=== PATIENT | female | born 1980 | race Asian ===

== ENCOUNTER 2020-05-30 13:36 | Outpatient (REF) | payer OTHER, SELFPAY | END 2020-05-30 13:37 | disposition home or self-care (01) | LOC: HO.HMGCLDS 13:36 | PROVIDERS: PCP Internal Medicine; Visit Provider Nurse Practitioner Family | DX: Z02.1 Encounter for pre-employment examination (principal) | CPT/HCPCS: 86481 ==

== ENCOUNTER 2020-06-28 11:52 | Outpatient (REF) | payer OTHER, SELFPAY ==
--- NOTE | 2020-06-28 12:01 | XR_ITS ---
EXAMINATION: XR CHEST CLINICAL INFORMATION: Preemployment. COMPARISON: Chest x-ray 07/13/2018. TECHNIQUE: Frontal view of the chest was obtained. FINDINGS: No significant abnormality is noted involving the heart, lungs, mediastinum, bony thorax or soft tissues. XR/XR chest 1V IMPRESSION: Unremarkable chest examination.
== END 2020-06-28 11:53 | disposition home or self-care (01) ==
LOC: HO.HMGCX 11:52
PROVIDERS: PCP Internal Medicine; Visit Provider Nurse Practitioner Family
DX: Z02.1 Encounter for pre-employment examination (principal); R76.11 Nonspecific reaction to tuberculin skin test without active tuberculosis
CPT/HCPCS: 71045

== ENCOUNTER 2021-08-20 13:41 | Outpatient (REF) | payer OTHER, SELFPAY ==
--- NOTE | ~2021-08-20 | XR_ITS ---
EXAMINATION: XR THORACIC SPINE CLINICAL INFORMATION: Dorsalis. Unspecified. COMPARISON: Chest radiograph 06/28/2020. TECHNIQUE: AP, lateral, swimmer's radiographs of the thoracic spine FINDINGS: Thoracic vertebral body height, spacing and alignment are normal in appearance. No paraspinous soft tissue masses identified. The visualized ribs and lungs are normal in appearance. No facet or endplate arthropathic changes are visualized. The visualized cervical spine on the swimmer's view demonstrates no gross spondylosis. XR/XR thoracic spine 3V IMPRESSION: Normal radiographs of the thoracic spine.
== END 2021-08-20 13:42 | disposition home or self-care (01) ==
LOC: HO.HMGCLDS 13:41
PROVIDERS: PCP Internal Medicine; Visit Provider Internal Medicine
DX: M54.9 Dorsalgia, unspecified (principal); R51.9 Headache, unspecified
CPT/HCPCS: 72072

== ENCOUNTER 2021-08-21 11:05 | Outpatient (REF) | payer OTHER, SELFPAY ==
[2021-08-21 14:43] LABS: MANUAL DIFF FLAG NO
[2021-08-21 14:47] LABS: Basophils Percent Auto 0.7 % (0-2); Eosinophils Absolute Auto 0.1 X10*3/uL (0.0-0.4); Eosinophils Percent Auto 1.9 % (0-4); Hemoglobin 11.1 g/dl (12.0-16.0); Imm Gran Abs Auto 0.01 X10*3/uL (0.00-0.03); Imm Gran Pct Auto 0.2 % (0.0-0.4); Lymphocytes Absolute Auto 2.1 X10*3/uL (1.2-4.9); Lymphocytes Percent Auto 36.1 % (20-40); Mean Corpuscular HGB Conc 32.6 g/dl (31.0-35.0); Mean Corpuscular Hemoglobin 29.8 pg (27.0-33.0); Mean Corpuscular Volume 91.2 fL (80.0-98.0); Mean Platelet Volume 11.2 fL (9.4-12.3); Monocytes Absolute Auto 0.4 X10*3/uL (0.1-1.2); Monocytes Percent Auto 6.6 % (2-11); Neutrophils Absolute Auto 3.2 x10*3/uL (2.0-8.3); Neutrophils Percent Auto 54.5 % (45-73); Platelet Count 253 X10*3/uL (160-400); Red Blood Count 3.73 X10*6/uL (4.20-5.50); Red Cell Distribution Width 12.4 % (11.0-16.0); White Blood Count 5.8 X10*3/uL (4.8-10.8)
[2021-08-21 15:20] LABS: Anion Gap 12 (12-20); Blood Urea Nitrogen 12 mg/dL (9-16); Calcium 9.1 mg/dL (8.4-10.2); Carbon Dioxide 25 mmol/L (22-29); Chloride 108 mmol/L (96-108); Estimated Glomerular Filt Rate > 60; Glucose Fasting 86 mg/dL (60-99); Potassium 4.3 mmol/L (3.3-5.1); Sodium 141 mmol/L (135-145)
[2021-08-21 15:25] LABS: TSH reflex Free T4 1.77 uIU/mL (0.32-4.0); Vitamin D 25-OH Total 23.9 ng/mL (>30)
== END 2021-08-21 11:06 | disposition home or self-care (01) ==
LOC: HO.HMGCLDS 11:05
PROVIDERS: PCP Internal Medicine; Visit Provider Internal Medicine
DX: M54.9 Dorsalgia, unspecified (principal); R51.9 Headache, unspecified
CPT/HCPCS: 36415; 80048; 82306; 84443; 85025

== ENCOUNTER 2021-09-13 11:01 | Outpatient (REF) | payer OTHER, SELFPAY ==
--- NOTE | ~2021-09-13 | CT_ITS ---
EXAMINATION: CT HEAD WITHOUT CONTRAST CLINICAL INFORMATION: R51.9 - Headache, unspecified COMPARISON: None TECHNIQUE: Contiguous axial imaging was performed from the skull base to vertex without intravenous administration of contrast. Additional 2-D coronal and sagittal reformatted images are generated on the CT workstation and uploaded to PACS. This CT examination was performed using dose optimization techniques as appropriate, variously including the following: *Automated exposure control *Adjustment of mA and/or kV according to patient size (this includes techniques or standardized protocols for targeted exams where dose is matched to indication/reason for exam; i.e. extremities or head) *Use of iterative reconstruction technique DLP: 776 mGy-cm FINDINGS: There is no intracranial hemorrhage, hematoma, or extra-axial fluid collection. The ventricles are normal in size. There is no hydrocephalus, edema, or mass effect. The valdovinos-white matter differentiation appears well preserved . There is no visible acute territorial infarct or mass lesion. The calvarium appears intact. There is no pneumocephalus or orbital emphysema. The visualized sinuses and middle ears and mastoid air cells show no significant mucosal thickening. There are no air-fluid levels. CT/CT head/brain wo con IMPRESSION: Normal noncontrast CT head.
== END 2021-09-13 11:02 | disposition home or self-care (01) ==
LOC: HO.CT 11:01
PROVIDERS: PCP Internal Medicine; Visit Provider Internal Medicine
DX: R51.9 Headache, unspecified (principal)
CPT/HCPCS: 70450

== ENCOUNTER 2022-04-24 15:05 | Outpatient (REF) | payer OTHER, SELFPAY ==
--- NOTE | ~2022-04-24 | XR_ITS ---
EXAMINATION: XR CHEST CLINICAL INFORMATION: Drug therapy COMPARISON: June 28, 2020 TECHNIQUE: 2 views of the chest were obtained. FINDINGS: No significant abnormality is noted involving the heart, lungs, mediastinum, bony thorax or soft tissues. XR/XR chest 2V IMPRESSION: No acute disease.
[2022-04-30 00:37] LABS: HPV mRNA E6/E7 rflx Not Detected (Not Detected)
== END 2022-04-24 15:06 | disposition home or self-care (01) ==
LOC: HO.HMGCX 15:05
PROVIDERS: PCP Internal Medicine; Visit Provider Internal Medicine
DX: Z00.01 Encounter for general adult medical examination with abnormal findings (principal); E55.9 Vitamin D deficiency, unspecified; E78.5 Hyperlipidemia, unspecified; D64.9 Anemia, unspecified; Z92.29 Personal history of other drug therapy; Z12.4 Encounter for screening for malignant neoplasm of cervix
CPT/HCPCS: 71046; 87624; 88142

== ENCOUNTER 2022-05-06 13:55 | Outpatient (REF) | payer OTHER, SELFPAY ==
--- NOTE | ~2022-05-06 | MM_ITS ---
EXAMINATION: MM SCREENING DIGITAL BREAST TOMOSYNTHESIS, BILATERAL CLINICAL INFORMATION: Screening. Asymptomatic. The lifetime risk of breast cancer based on the Tyrer-Cuzick Model is 9%. COMPARISON: Mammography: None TECHNIQUE: Digital breast tomosynthesis is performed in both the craniocaudal and mediolateral oblique views along with computer-aided detection (CAD). Synthesized 2D images are generated from the tomosynthesis. FINDINGS: The breasts are heterogeneously dense, which may obscure small masses (ACR BI-RADS breast composition Category c). There are no significant masses, abnormal calcifications, or other abnormalities. MM/MM tomosynthesis screening BI IMPRESSION: No mammographic evidence of malignancy. ASSESSMENT: BI-RADS 1: Negative RECOMMENDATION: Routine annual mammography screening. This patient's information was entered into a reminder system with a target due date for their next mammogram.
== END 2022-05-06 13:56 | disposition home or self-care (01) ==
LOC: HO.MAMMO 13:55
PROVIDERS: PCP Internal Medicine; Visit Provider Internal Medicine
DX: Z12.31 Encounter for screening mammogram for malignant neoplasm of breast (principal)
CPT/HCPCS: 77063; 77067

== ENCOUNTER 2022-05-09 10:26 | Outpatient (REF) | payer OTHER, SELFPAY ==
[2022-05-09 11:16] LABS: MANUAL DIFF FLAG NO
[2022-05-09 11:27] LABS: Basophils Percent Auto 0.8 % (0-2); Eosinophils Absolute Auto 0.1 X10*3/uL (0.0-0.4); Eosinophils Percent Auto 2.6 % (0-4); Hematocrit 34.1 % (37.0-47.0); Hemoglobin 11.7 g/dl (12.0-16.0); Imm Gran Abs Auto 0.01 X10*3/uL (0.00-0.03); Imm Gran Pct Auto 0.2 % (0.0-0.4); Lymphocytes Absolute Auto 1.8 X10*3/uL (1.2-4.9); Lymphocytes Percent Auto 35.2 % (20-40); Mean Corpuscular HGB Conc 34.3 g/dl (31.0-35.0); Mean Corpuscular Hemoglobin 31.7 pg (27.0-33.0); Mean Corpuscular Volume 92.4 fL (80.0-98.0); Mean Platelet Volume 10.7 fL (9.4-12.3); Monocytes Absolute Auto 0.3 X10*3/uL (0.1-1.2); Monocytes Percent Auto 5.9 % (2-11); Neutrophils Absolute Auto 2.8 x10*3/uL (2.0-8.3); Neutrophils Percent Auto 55.3 % (45-73); Platelet Count 259 X10*3/uL (160-400); Red Blood Count 3.69 X10*6/uL (4.20-5.50); Red Cell Distribution Width 12.4 % (11.0-16.0); White Blood Count 5.1 X10*3/uL (4.8-10.8)
[2022-05-09 12:15] LABS: Alanine Aminotransferase 17 U/L (0-31); Anion Gap 15 (12-20); Aspartate Amino Transferase 17 U/L (5-31); Blood Urea Nitrogen 11 mg/dL (9-16); Calcium 9.1 mg/dL (8.4-10.2); Carbon Dioxide 23 mmol/L (22-29); Chloride 108 mmol/L (96-108); Cholesterol 226 mg/dL; Estimated Glomerular Filt Rate > 60; Glucose Fasting 94 mg/dL (60-99); HDL Cholesterol 57 mg/dL; Iron 58 mcg/dL (30-160); LDL Cholesterol Calculated 154 mg/dl; Percent Iron Saturation 19 % (15-50); Potassium 4.1 mmol/L (3.3-5.1); Sodium 142 mmol/L (135-145); Total Iron Binding Capacity 305 mcg/dL (228-428); Triglycerides 75 mg/dL; Unsaturated Iron Binding 247 ug/dL
== END 2022-05-09 10:27 | disposition home or self-care (01) ==
LOC: HO.HMGCLDS 10:26
PROVIDERS: PCP Internal Medicine; Visit Provider Internal Medicine
DX: Z00.01 Encounter for general adult medical examination with abnormal findings (principal); D64.9 Anemia, unspecified; E78.5 Hyperlipidemia, unspecified; E55.9 Vitamin D deficiency, unspecified
CPT/HCPCS: 36415; 80048; 80061; 82306; 83540; 84450; 84460; 85025

== ENCOUNTER 2023-01-23 13:17 | Outpatient (REF) | payer OTHER, SELFPAY ==
[2023-01-23 14:48] LABS: Appearance Urine Turbid; Color Urine Dark Yellow; Glucose Urine UA Negative (Negative); Leukocyte Esterase Urine Trace (Negative); Nitrite Urine Negative (Negative); PH 5.5 (5.0-9.0); Specific Gravity - Urine 1.025 (1.005-1.025); UMIC TRIGGER UACC YES; Urine Blood Negative (Negative); Urine Ketones Trace mg/dL (Negative); Urine Protein Negative (Neg-Trace)
[2023-01-23 14:56] LABS: Bacteria Urine 1+ (None Seen); Calcium Oxalate Crystals Urine Present; Hyaline Casts Urine 0-2 /LPF (0-2); Other Crystals Urine Present; WBC Urine 0-5 /HPF (0-5)
[2023-01-23 15:33] LABS: Influenza A PCR NEGATIVE (Negative); Influenza B PCR NEGATIVE (Negative); Resp Syncy Virus RNA Qual PCR NEGATIVE (Negative); SARS COV2 PCR INHOUSE NEGATIVE (Negative)
[2023-01-23 17:19] LABS: MANUAL DIFF FLAG NO
[2023-01-23 17:34] LABS: Basophils Percent Auto 0.6 % (0-2); Eosinophils Absolute Auto 0.1 X10*3/uL (0.0-0.4); Eosinophils Percent Auto 1.2 % (0-4); Hemoglobin 11.7 g/dl (12.0-16.0); Imm Gran Abs Auto 0.02 X10*3/uL (0.00-0.03); Imm Gran Pct Auto 0.3 % (0.0-0.4); Lymphocytes Absolute Auto 1.7 X10*3/uL (1.2-4.9); Lymphocytes Percent Auto 23.9 % (20-40); Mean Corpuscular HGB Conc 33.4 g/dl (31.0-35.0); Mean Corpuscular Volume 92.8 fL (80.0-98.0); Mean Platelet Volume 11.4 fL (9.4-12.3); Monocytes Absolute Auto 0.5 X10*3/uL (0.1-1.2); Monocytes Percent Auto 6.9 % (2-11); Neutrophils Absolute Auto 4.9 x10*3/uL (2.0-8.3); Neutrophils Percent Auto 67.1 % (45-73); Platelet Count 233 X10*3/uL (160-400); Red Blood Count 3.77 X10*6/uL (4.20-5.50); Red Cell Distribution Width 12.2 % (11.0-16.0); White Blood Count 7.3 X10*3/uL (4.8-10.8)
[2023-01-23 17:37] LABS: Anion Gap 9 (12-20); Blood Urea Nitrogen 11 mg/dL (9-16); Calcium 9.1 mg/dL (8.4-10.2); Carbon Dioxide 27 mmol/L (22-29); Chloride 108 mmol/L (96-108); Estimated Glomerular Filt Rate > 60; Glucose Random 120 mg/dL (60-115); Potassium 3.7 mmol/L (3.3-5.1); Sodium 140 mmol/L (135-145)
== END 2023-01-23 13:18 | disposition home or self-care (01) ==
LOC: HO.HMGCLDS 13:17
PROVIDERS: PCP Internal Medicine; Visit Provider Nurse Practitioner Family
DX: Z20.822 Contact with and (suspected) exposure to COVID-19 (principal); D64.9 Anemia, unspecified; R09.89 Other specified symptoms and signs involving the circulatory and respiratory systems
CPT/HCPCS: 0241U; 36415; 80048; 81001; 85025

== ENCOUNTER 2023-01-30 10:34 | Outpatient (AMB) | payer OTHER, SELFPAY ==
--- NOTE | 2023-01-30 10:40 | A.OFFPC_ITS ---
Vital Signs 01/30/23 10:41 Height 5 ft 2 in Weight 174 lb BMI 31.8 BP 134/92 H Blood Pressure Location Lt brachial Position Sitting Pulse 96 Pulse Source Pulse Oximeter Pulse Oximetry (%) 98 Oxygen Delivery Method Room Air Intake Visit Reasons: f/u WI elevated glucose/ light headedness f/u Intake Note: Pt is here today to f/u from [place] for elevated random glucose and light headedness Allergies No Known Allergies Allergy (Verified 01/30/23 10:50) Medication List - Last Reconciled 01/30/23 by Linnette Mckeon MD No Known Home Meds Tobacco use date assessed: 01/30/23 HPI f/u WI elevated glucose/ light headedness f/u HPI Details 42-year-ol lady here today for follow-up after recently being seen at the walk-in clinic where she was told she had high fasting glucose levels. Patient also has been complaining of intermittent episodes of lightheadedness, comes and goes and lasts only for several seconds. Labs done at the walk-in showed presence of mild anemia, and slightly elevated random blood sugar at 1 20 mg/dL. Urinalysis did not show any infection. She tested negative for COVID, influenza. She has been feeling well at present time, with no recurrence of lightheadedness. Laboratory Tests 01/23/23 01/23/23 13:24 13:24 WBC 7.3 Hgb 11.7 L Hct 35.0 L MCV 92.8 MCH 31.0 RDW 12.2 Plt Count 233 Chloride 108 Carbon Dioxide 27 Anion Gap 9 L BUN 11 Creatinine 0.69 Estimated GFR > 60 [facility] Gl[facility] Medical History Anemia Dyslipidemia History of Bacillus Calmette-Flaco vaccination Surgical History No pertinent past surgical history Family History Father Essential hypertension Social History Household Members: Family Housing: House Patient Tobacco Use Status: Never used Tobacco e-Cigarette/Vaping Use: Never Used Use of substances other than those prescribed or required for medical reasons: No Have you been hit, kicked, punched, or otherwise hurt by someone within the past year? If so, by whom?: No Do you feel safe in your current relationship?: No Current Relationship Do you have thoughts of harming others: None Do you have a plan to hurt others: No Plan Do you have the means to hurt others: No Recently lost weight without trying: No service: No Current occupational status: employed Cognitive needs: No Hearing needs: No Vision needs: Yes Questionnaire PHQ-9 Over the last 2 weeks, how often have you been bothered by any of the following problems? 1. Little interest or pleasure in doing things: not at all 2. Feeling down, depressed, or hopeless: not at all 3. Trouble falling or staying asleep, or sleeping too much: not at all 4. Feeling tired or having little energy: not at all 5. Poor appetite or overeating: not at all 6. Feeling bad about yourself - or that you are a failure or have let yourself or your family down: not at all 7. Trouble concentrating on things, such as reading the newspaper or watching television: not at all 8. Moving or speaking so slowly that other people could have noticed. Or the opposite - being so fidgety or restless that you have been moving around a lot more than usual: not at all 9. Thoughts that you would be better off or of hurting yourself in some way: not at all Total score: 0 Depression Screening Interpretation: Negative 97417 - PHQ-9 Billing: Yes Source: Developed by Drs. Jorje Kaba, Carmen Bhat, Ata Irving and colleagues, with an educational faraz from [employer]. Thrive Questionnaire Date Thrive assessed: 01/30/23 I am a: Patient What is your living situation today?: I have a steady place to live Within the past 12 months, did the food you bought not last and you didn't have the money to get more?: Never true Within the past 12 months, did you worry whether your food would run out before you got money to buy more?: Never true Do you have trouble paying for medicines?: No Do you have trouble getting transportation to medical appointments?: No Do you have trouble paying your heating and electricity bill?: No Do you have trouble taking care of your child, family member or friend?: No Do you have trouble with day-to-day activities such as bathing, preparing meals, shopping, managing finances, etc.?: No Are you currently unemployed and looking for a job?: No Are you interested in more education?: No AUDIT C Alcohol Use Questionnaire (AUDIT-C) 1. How often do you have a drink containing alcohol?: Never Total Score: 0 JOSHUA-7 AMB Questionnaire JOSHUA-7 Date JOSHUA - 7 assessed: 01/30/23 Feeling nervous, anxious, or on edge: 1 = Several days Not being able to stop or control worryin = Several days Worrying too much about different things: 1 = Several days Trouble relaxin = Several days Being so restless that it is hard to sit still: 0 = Not at all Becoming easily annoyed or irritable: 0 = Not at all Feeling afraid as if something awful might happen: 0 = Not at all Total JOSHUA-7 score (0-4 normal; 5-9 mild; 10-14 moderate; 15-21 severe): 4 Source: Developed by Drs. Jorje Kaba, Carmen Bhat, Ata Irving and colleagues, with an educational faraz from [employer]. JOSHUA-7 Assessment Billing JOSHUA-7 Assessment Tool: JOSHUA-7 Assessment 78012 Review of Systems Const Denies body aches, Denies fatigue, Denies fever(s), Reports headache(s) (Occasional and posterior head and neck) and Denies weakness Eyes Denies change in vision ENT Reports headache(s) (Occasional and posterior head and neck), Denies nasal congestion, Denies nasal discharge and Denies sore throat Card Denies chest pain, Denies lightheadedness, Denies palpitations and Denies dyspnea Resp Denies chest congestion, Denies cough, Denies dyspnea and Denies wheezing GI Denies abdominal pain, Denies change in bowel habits and Denies heartburn Denies hematuria, Denies urinary frequency, Denies dysuria and Denies urinary urgency Musc Reports no additional complaints Neuro Reports headache(s) (Occasional and posterior head and neck) and Denies weakness Psych Reports no additional complaints Endo Denies fatigue, Denies polydipsia, Denies polyuria and Denies palpitations Tez/Lymph Denies easy bruising Aller/Immun Denies seasonal rhinorrhea and Denies wheezing Physical exam (Primary Care) Vital Signs: Last Vital Signs Pulse 96 01/30/23 10:41 BP 134/92 H 01/30/23 10:41 Pulse Ox 98 01/30/23 10:41 Oxygen Delivery Method Room Air 01/30/23 10:41 BMI result Body Mass Index 31.8 Tobacco/Smoking Status: Tobacco use Status Tobacco use date assessed 01/30/23 01/30/23 10:46 Patient Tobacco Use Status Never used Tobacco 01/30/23 10:46 e-Cigarette/Vaping Use Never Used 01/30/23 10:46 PHQ-9: PHQ-9 Score PHQ-9: Total score 0 02/02/23 01:10 Depression Screening Interpretation: Negative Thrive Assessment: Date of Thrive Assessment Date Thrive assessed 01/30/23 01/30/23 10:48 Const General: cooperative, comfortable and no acute distress Orientation/consciousness: patient oriented x3 Limitations: no limitations HENMT Ears: hearing grossly normal bilaterally, external ears normal, TM's normal bilaterally and EAC's normal General nose exam: Normal external nose present, Normal nasal mucous membranes and turbinates present and No nasal discharge present Mouth: Normal oral and palatal mucosa present, oropharynx normal and moist mucous membranes Eyes General: appearance normal, both eyes and all related structures Conjunctivae: conjunctivae normal Pupils: Equal, round and reactive pupils present EOM: EOMs intact bilaterally Neck Neck: Yes full ROM, Yes no lymphadenopathy and Yes supple Resp Effort & Inspection: normal respiratory effort and able to speak in complete sentences Auscultation: clear to auscultation bilaterally Cardio Rate: regular rate Rhythm: regular rhythm Heart sounds: S1 normal heart sound present and S2 normal heart sound present GI Inspection: Yes normal to inspection Palpation (GI): Soft to palpation, nontender and no masses Auscultation: normal bowel sounds Back/Spine/Pelvis Cervical Spine: cervical ROM normal Thoracic/Lumbar Spine: thoracic and lumbar spine normal to inspection Skin General skin exam: no rashes or lesions noted Neuro General: patient oriented x3, gait normal, tone normal, moves all extremities, Normal light touch and pain sensation and no focal motor deficits Cranial nerves: Yes Equal, round and reactive pupils present Cognition (Neuro): normal cognition Gait exam (Neuro): Normal gait present Motor exam (neuro): 5/5 motor strength present throughout Extrem General: Yes normal to inspection, Yes full ROM, Yes no joint enlargement, Yes no clubbing, cyanosis or edema, Yes no calf tenderness and Yes normal gait Results Reviewed Results Reviewed: RUN: 01/30/23 1047 PAGE 1 [facility] [address] [place] [id number] Contract Processor: Tuan Christy M.D. Specimen Inquiry Name: Nova Drummond Age/Sex: 42/F : 1980 Unit#: [id number] Attend Dr: Sheila Peguero SUPERVISOR HOME ENERGY CONSULTANT Re01/23/23 Status: DEP [facility] Disch: SPEC : [id number] MARCELO: 01/23/23 STATUS: COMP REQ : [id number] RECD: 01/23/[address]: Sheila Peguero SUPERVISOR HOME ENERGY CONSULTANT COMP: 01/23/23 ENTERED: 01/23/[address]: Linnette Mckeon MD ORDERED: CBC Auto Diff Test Result Flag Reference Site WBC 7.3 4.8-10.8 X10*3/uL RBC 3.77 L 4.20-5.50 X10*6/uL HGB 11.7 L 12.0-16.0 g/dl HCT 35.0 L 37.0-47.0 % MCV 92.8 80.0-98.0 fL MCH 31.0 27.0-33.0 pg MCHC 33.4 31.0-35.0 g/dl RDW 12.2 11.0-16.0 % PLT 233 160-400 X10*3/uL MPV 11.4 9.4-12.3 fL Neut Pct Auto 67.1 45-73 % ImGran Pct Auto 0.3 0.0-0.4 % Lymp Pct Auto 23.9 20-40 % Forrest Pct Auto 6.9 2-11 % Eos Pct Auto 1.2 0-4 % Baso Pct Auto 0.6 0-2 % NRBC Pct Auto 0.0 0.0-0.2 /100WBC ANC Neut Abs # 4.9 2.0-8.3 x10*3/uL ImGran Abs Auto 0.02 0.00-0.03 X10*3/uL Lymph Abs Auto 1.7 1.2-4.9 X10*3/uL Forrest Abs Auto 0.5 0.1-1.2 X10*3/uL Eos Abs Auto 0.1 0.0-0.4 X10*3/uL Baso Abs Auto 0.0 0.0-0.2 X10*3/uL NRBC Abs Auto 0.000 0.0-0.012 X10*3/uL PEC : [id number] MARCELO: 01/23/23 STATUS: COMP REQ : [id number] RECD: 01/23/[address]: Sheila Peguero SUPERVISOR HOME ENERGY CONSULTANT COMP: 01/23/23 ENTERED: 01/23/23-[address]: Linnette Mckeon MD ORDERED: BMP Test Result Flag Reference Site Sodium 140 135-145 mmol/L Potassium 3.7 3.3-5.1 mmol/L CL 108 96-108 mmol/L CO2 27 22-29 mmol/L Gap 9 L 12-20 BUN 11 9-16 mg/dL Creat 0.69 0.5-1.4 mg/dL EGFR > 60 NOTE: For -Cymraes individuals, multiply the result by 1.210. Chronic Kidney Disease: Estimated GFR < 60 mL/min/1.73m2 Severe Kidney Disease: Estimated GFR < 15 mL/min/1.73m2 Glucose, Random 120 H 60-115 mg/dL CA 9.1 8.4-10.2 mg/dL Assessment and Plan Assessment & Plan (1) Anemia: Code(s): D64.9 - Anemia, unspecified Plan: Reviewed vitamin-D, B12 level and referred to hematology for further evaluation (2) Dyslipidemia: Code(s): E78.5 - Hyperlipidemia, unspecified Plan: Reviewed recent fasting lipid profile with patient with levels within normal limits . Continue with adherence to low-cholesterol diet and regular exercise, at least 30 minutes 3 to 4 times a week. Advised patient to make healthy food choices, eat more fruits, vegetables, whole grains, wild caught fish and low-fat dairy. Limit amount of meat and fried or fatty food products, as well as processed foods and fast foods. (3) Elevated serum glucose: Code(s): R73.9 - Hyperglycemia, unspecified Plan: Ordered fasting glucose and a hemoglobin A1c level Orders: Orders Alanine Aminotransferase 01/30/23 E78.5 - Hyperlipidemia, unspecified, R51.9 - Headache, unspecified, R73.9 - Hyperglycemia, unspecified Glucose Fasting 01/30/23 E78.5 - Hyperlipidemia, unspecified, R51.9 - Headache, unspecified, R73.9 - Hyperglycemia, unspecified Hemoglobin A1c 01/30/23 E78.5 - Hyperlipidemia, unspecified, R51.9 - Headache, unspecified, R73.9 - Hyperglycemia, unspecified Lipid Panel 01/30/23 E78.5 - Hyperlipidemia, unspecified, R51.9 - Headache, unspecified, R73.9 - Hyperglycemia, unspecified Aspartate Amino Transferase 01/30/23 E78.5 - Hyperlipidemia, unspecified, R51.9 - Headache, unspecified, R73.9 - Hyperglycemia, unspecified Vitamin B12 and Folate 01/30/23 E78.5 - Hyperlipidemia, unspecified, R51.9 - Headache, unspecified, R73.9 - Hyperglycemia, unspecified Vitamin D 25-OH Total 01/30/23 E78.5 - Hyperlipidemia, unspecified, R51.9 - Headache, unspecified, R73.9 - Hyperglycemia, unspecified Referrals Hematology & Oncology Referral D64.9 - Anemia, unspecified Coding Level of Care Code Est Pt Level 4 (26516) Diagnoses Anemia D64.9 Dyslipidemia E78.5 Elevated serum glucose R73.9 Additional Codes JOSHUA-7 Assessment Billing - JOSHUA-7 Assessment Tool: JOSHUA-7 Assessment 40552 ([id number])
[2023-01-30 10:41] VITALS: BP 134/92; PULSE 96; O2SAT 98; BMI 31.8
== END 2023-01-30 11:44 | disposition home or self-care (01) ==
LOC: HO.HMGC 10:34
PROVIDERS: PCP Internal Medicine; Visit Provider Internal Medicine
DX: D64.9 Anemia, unspecified (principal); E78.5 Hyperlipidemia, unspecified; R73.9 Hyperglycemia, unspecified
CPT/HCPCS: 99214

== ENCOUNTER 2023-01-30 11:14 | Outpatient (REF) | payer OTHER, SELFPAY ==
[2023-01-30 14:14] LABS: Estimated Average Glucose 103 mg/dL; Hemoglobin A1c % 5.2 %
[2023-01-30 14:19] LABS: Alanine Aminotransferase 15 U/L (0-31); Aspartate Amino Transferase 17 U/L (5-31); Cholesterol 205 mg/dL; Glucose Fasting 91 mg/dL (60-99); HDL Cholesterol 60 mg/dL; LDL Cholesterol Calculated 130 mg/dl; Triglycerides 79 mg/dL
[2023-01-30 14:39] LABS: Folate 13.9 ng/mL (> or = 4.0); Vitamin B12 246 pg/mL (200-900); Vitamin D 25-OH Total 30.8 ng/mL (>30)
== END 2023-01-30 11:15 | disposition home or self-care (01) ==
LOC: HO.HMGCLDS 11:14
PROVIDERS: PCP Internal Medicine; Visit Provider Internal Medicine
DX: E78.5 Hyperlipidemia, unspecified (principal); R51.9 Headache, unspecified; R73.9 Hyperglycemia, unspecified
CPT/HCPCS: 36415; 80061; 82306; 82607; 82746; 82947; 83036; 84450; 84460

== ENCOUNTER → 2023-03-23 09:23 | Outpatient (BNV) | payer OTHER, SELFPAY | PROVIDERS: PCP Internal Medicine; Referring Provider Internal Medicine; Visit Provider Internal Medicine | DX: D64.9 Anemia, unspecified (principal) | CPT/HCPCS: 99204; 99212; 99213; G2211 ==

== ENCOUNTER 2023-04-30 15:08 | Outpatient (AMB) | payer OTHER, SELFPAY ==
--- NOTE | 2023-04-30 15:09 | MHC.PC.OV ---
Vital Signs 04/30/23 15:11 Height 5 ft 2 in Weight 173 lb BMI 31.6 BP 120/78 Blood Pressure Location Lt brachial Position Sitting Pulse 80 Pulse Source Pulse Oximeter Pulse Oximetry (%) 98 Oxygen Delivery Method Room Air Intake Visit Reasons: Annual PE Intake Note: Pt is here today for her PE Is last menstrual period known: Yes Last menstrual period: 04/02/23 Allergies No Known Allergies Allergy (Verified 04/30/23 15:10) Medication List - Last Reconciled 04/30/23 by Linnette Mckeon MD multivitamin 1 tab PO DAILY Tobacco use date assessed: 04/30/23 Dental Screening Dental Screen Date: 04/30/23 Did you have a dental visit in the last 12 months?: Yes Did you have a dental problem in the last 6 months where you did not have access to dental care?: No Was dental information given to patient?: Patient has dentist HPI Annual PE HPI Details 42-year-old lady presents today for physical exam. She is up-to-date with her screening mammogram in her cervical cancer screening, scheduled for another mammogram later this month She has been complaining of intermittent episodes of dizziness, sees whirly swirls whenever she tries to look sideways on both sides. She also has been bothered by intermittent episodes of leg cramping specially at night. Otherwise she has been feeling well with no other complaints. She had recent fasting labs done which show no anemia, normal lipids, and fasting glucose, normal vitamin-D , B12 level, and electrolytes. [facility] Medical History (Updated 04/30/23 @ 15:58 by Linnette Mckeon MD) Leg cramp Visual field defect of both eyes Anemia Dyslipidemia History of Bacillus Calmette-Flaco vaccination Surgical History No pertinent past surgical history Family History Father Essential hypertension Social History Household Members: Family Housing: House Patient Tobacco Use Status: Never used Tobacco e-Cigarette/Vaping Use: Never Used service: No Current occupational status: employed Cognitive needs: No Hearing needs: No Vision needs: Yes Female Reproductive History Menstrual Date of last menstrual period: 04/02/23 Questionnaire PHQ-9 Over the last 2 weeks, how often have you been bothered by any of the following problems? Depression Screening Interpretation: Negative Source: Developed by Drs. Jorje Kaba, Carmen Bhat, Ata Irving and colleagues, with an educational faraz from [employer]. Thrive Questionnaire Date Thrive assessed: 01/30/23 AUDIT C Alcohol Use Questionnaire (AUDIT-C) 1. How often do you have a drink containing alcohol?: Never Total Score: 0 JOSHUA-7 AMB Questionnaire JOSHUA-7 Date JOSHUA - 7 assessed: 01/30/23 Source: Developed by Drs. Jorje Kaba, Carmen Bhat, Ata Irving and colleagues, with an educational faraz from [employer]. Review of Systems Const Denies body aches, Denies fatigue, Denies fever(s) and Denies weakness Eyes Reports as per HPI ENT Denies nasal congestion, Denies nasal discharge and Denies sore throat Card Denies chest pain, Denies lightheadedness, Denies palpitations and Denies dyspnea Resp Denies chest congestion, Denies cough, Denies dyspnea and Denies wheezing GI Denies abdominal pain, Denies change in bowel habits and Denies heartburn Denies hematuria, Denies urinary frequency, Denies dysuria and Denies urinary urgency Musc Reports no additional complaints Skin/Breast Denies breast swelling, Denies breast pain, Denies breast mass, Denies lesions and Denies rash Neuro Denies weakness Psych Reports no additional complaints Endo Denies fatigue, Denies polydipsia, Denies polyuria and Denies palpitations Tez/Lymph Denies easy bruising Aller/Immun Denies seasonal rhinorrhea and Denies wheezing Physical exam (Primary Care) Vital Signs: Last Vital Signs Pulse 80 04/30/23 15:11 BP 120/78 04/30/23 15:11 Pulse Ox 98 04/30/23 15:11 Oxygen Delivery Method Room Air 04/30/23 15:11 BMI result Body Mass Index 31.6 Tobacco/Smoking Status: Tobacco use Status Tobacco use date assessed 04/30/23 04/30/23 15:10 Patient Tobacco Use Status Never used Tobacco 04/30/23 15:10 e-Cigarette/Vaping Use Never Used 04/30/23 15:10 Depression Screening Interpretation: Negative Thrive Assessment: Date of Thrive Assessment Date Thrive assessed 01/30/23 04/30/23 15:10 Const General: cooperative, comfortable and no acute distress Orientation/consciousness: patient oriented x3 Limitations: no limitations HENMT Ears: hearing grossly normal bilaterally, external ears normal, TM's normal bilaterally and EAC's normal General nose exam: Normal external nose present, Normal nasal mucous membranes and turbinates present and No nasal discharge present Mouth: Normal oral and palatal mucosa present, oropharynx normal and moist mucous membranes Eyes General: appearance normal, both eyes and all related structures Visual Berry: normal visual berry by confrontation Alignment and Position: alignment normal Periorbital: periorbital findings normal Eyelids: Yes eyelids normal Conjunctivae: conjunctivae normal Sclerae: sclerae normal Pupils: Equal, round and reactive pupils present EOM: EOMs intact bilaterally Neck Neck: Yes full ROM, Yes no lymphadenopathy and Yes supple Chest Breast/axilla inspection: normal inspection of the breasts Breast/axilla palpation: normal palpation of the breasts Resp Effort & Inspection: normal respiratory effort and able to speak in complete sentences Auscultation: clear to auscultation bilaterally Cardio Rate: regular rate Rhythm: regular rhythm Heart sounds: S1 normal heart sound present and S2 normal heart sound present GI Inspection: Yes normal to inspection Palpation (GI): Soft to palpation, nontender and no masses Auscultation: normal bowel sounds Back/Spine/Pelvis Cervical Spine: cervical ROM normal Thoracic/Lumbar Spine: thoracic and lumbar spine normal to inspection Skin General skin exam: no rashes or lesions noted Neuro General: patient oriented x3, gait normal, tone normal, moves all extremities, Normal light touch and pain sensation and no focal motor deficits Cranial nerves: Yes Equal, round and reactive pupils present Cognition (Neuro): normal cognition Gait exam (Neuro): Normal gait present Motor exam (neuro): 5/5 motor strength present throughout Extrem General: Yes normal to inspection, Yes full ROM, Yes no joint enlargement, Yes no clubbing, cyanosis or edema, Yes no calf tenderness and Yes normal gait Psych Appearance: grossly normal and well kempt Mental Status: mental status grossly normal Speech and movement: Normal speech and movement present Affect: normal affect Attitude: cooperative Thought process: Normal thought process present Results Reviewed Results Reviewed: ENTERED: 01/30/23-[address]: ORDERED: Glu Fasting, AST, ALT, Lipid Panel, B12FOL, Vitamin D 25-OH Test Result Flag Reference Site FBS 91 60-99 mg/dL AST (GOT) 17 5-31 U/L ALT (GPT) 15 0-31 U/L Triglyceride 79 mg/dL Desirable Triglyceride: less than 150 mg/dL Borderline High Triglyceride 150-199 mg/dL High Triglyceride: 200-499 mg/dL Very High Triglyceride: greater than or equal to 5OO mg/dL Chol 205 mg/dL Desirable Cholesterol: less than 200 mg/dL Borderline High Cholesterol: 200-239 mg/dL High Cholesterol: greater than 239 mg/dL LDL Calculated 130 mg/dl Desirable LDL: less than 100 mg/dL Near Optimal/Above Optimal LDL: 110-129 mg/dL Borderline High LDL: 130-159 mg/dL High LDL: 160-189 mg/dL Very High LDL: greater than or equal to 190 mg/dL HDL 60 mg/dL Desirable HDL: greater than 40 mg/dL Note: This HDL assay may give artificially low results in patients with liver disease. Vitamin B12 246 200-900 pg/mL NORMAL 200-900 PG/ML INDETERMINATE 160-199 PG/ML DEFICIENT < 160 PG/ML Folate 13.9 > or = 4.0 ng/mL Reference Values: > or = 4.0 ng/mL < 4.0 ng/mL suggests folate deficiency Methotrexate, aminopterin and folinic acid (leucovorin) are chemotherapeutic agents whose molecular structures are similar to folate; therefore, the Pension Agent folate assay cannot be used for patients using these drugs. Vit D 25-OH Tot 30.8 >30 ng/mL Health Based Reference Values* < 20 ng/mL Deficient 20-30 ng/mL Insufficient > 30 ng/mL Sufficient ENTERED: 03/23/[address] [facility] [address]: Linnette Mckeon MD ORDERED: CBC Auto Diff, Retic/R Test Result Flag Reference Site WBC 5.8 4.8-10.8 X10*3/uL RBC 3.91 L 4.20-5.50 X10*6/uL HGB 12.2 12.0-16.0 g/dl HCT 36.5 L 37.0-47.0 % MCV 93.4 80.0-98.0 fL MCH 31.2 27.0-33.0 pg MCHC 33.4 31.0-35.0 g/dl RDW 12.8 11.0-16.0 % PLT 228 160-400 X10*3/uL M ENTERED: 01/23/23-[address] [facility] [address]: Linnette Mckeon MD ORDERED: BMP Test Result Flag Reference Site Sodium 140 135-145 mmol/L Potassium 3.7 3.3-5.1 mmol/L CL 108 96-108 mmol/L CO2 27 22-29 mmol/L Gap 9 L 12-20 BUN 11 9-16 mg/dL Creat 0.69 0.5-1.4 mg/dL EGFR > 60 NOTE: For -Filipino individuals, multiply the result by 1.210. Chronic Kidney Disease: Estimated GFR < 60 mL/min/1.73m2 Severe Kidney Disease: Estimated GFR < 15 mL/min/1.73m2 Glucose, Random 120 H 60-115 mg/dL CA 9.1 8.4-10.2 mg/dL Assessment and Plan Assessment & Plan (1) Annual visit for general adult medical examination with abnormal findings: Code(s): Z00.01 - Encounter for general adult medical examination with abnormal findings Plan: Recent fasting labs reviewed with patient. Recommended dental visit every 6 months and will refer for an eye exam. Take adequate calcium in diet and vitamin-D 3 at 2000 IU per cap once a day, in addition to weight-bearing exercises to help maintain good muscle tone and weight control. Instructed to do self-breast exam, and continue to get yearly mammogram, has an appointment already scheduled for later this month. Up to Date with her cervical cancer screening. Reminded to get her COVID booster and her yearly flu shot, up-to-date with her Tdap. (2) Visual field defect of both eyes: Code(s): H53.40 - Unspecified visual field defects Plan: Referred to ophthalmology for further evaluation management. (3) Lightheadedness: Code(s): R42 - Dizziness and giddiness Plan: CBC, and basic metabolic panel, fasting glucose are all within normal limits, symptoms of dizziness could be related to her eye, referred for an eye exam (4) Leg cramp: Code(s): R25.2 - Cramp and spasm Plan: Advised to take [id number] magnesium tablets to 50 mg per tablet of Mag oxide once a day for at least 1 week and see if this helps Orders: Referrals Ophthalmology Referral H53.40 - Unspecified visual field defects, R42 - Dizziness and giddiness Coding Level of Care Code Est Pt Prev Care 40-64y(32721) Diagnoses Annual visit for general adult medical examination with abnormal findings Z00.01 Visual field defect of both eyes H53.40 Lightheadedness R42 Leg cramp R25.2
[2023-04-30 15:11] VITALS: BP 120/78; PULSE 80; O2SAT 98; BMI 31.6
== END 2023-04-30 16:24 | disposition home or self-care (01) ==
PROVIDERS: Visit Provider Internal Medicine
DX: Z00.01 Encounter for general adult medical examination with abnormal findings (principal); H53.40 Unspecified visual field defects; R42 Dizziness and giddiness; R25.2 Cramp and spasm
CPT/HCPCS: 99396

== ENCOUNTER 2023-05-12 14:22 | Outpatient (REF) | payer OTHER, SELFPAY | END 2023-05-12 14:23 | disposition home or self-care (01) | LOC: HO.MAMMO 14:22 | PROVIDERS: PCP Internal Medicine; Visit Provider Internal Medicine | DX: Z12.31 Encounter for screening mammogram for malignant neoplasm of breast (principal) | CPT/HCPCS: 77063; 77067 ==

== ENCOUNTER → 2023-05-12 14:30 | Outpatient (BNV) | payer OTHER, SELFPAY | PROVIDERS: PCP Internal Medicine; Visit Provider Radiology Diagnostic Radiology | DX: Z12.31 Encounter for screening mammogram for malignant neoplasm of breast (principal) | CPT/HCPCS: 77063; 77067 ==

== ENCOUNTER 2023-05-29 16:31 | Outpatient (REF) | payer OTHER, SELFPAY | END 2023-05-29 16:32 | disposition home or self-care (01) | LOC: HO.CT 16:31 | PROVIDERS: PCP Internal Medicine; Visit Provider Internal Medicine | DX: H53.40 Unspecified visual field defects (principal); R42 Dizziness and giddiness; R51.9 Headache, unspecified | CPT/HCPCS: 70450 ==

== ENCOUNTER 2024-05-05 09:32 | Outpatient (AMB) | payer OTHER, SELFPAY ==
--- NOTE | 2024-05-05 09:39 | A.OFFPC_ITS ---
Vital Signs 05/05/24 09:40 Height 5 ft 2 in Weight 173 lb BMI 31.6 BP 124/96 H Blood Pressure Location Lt brachial Position Sitting Pulse 72 Pulse Source Pulse Oximeter Pulse Oximetry (%) 99 Oxygen Delivery Method Room Air Intake Visit Reasons: PE Intake Note: Pt is here today for her PE: Last mammogram 05/12/23; papsmear 04/25/22 Is last menstrual period known: Yes Last menstrual period: 04/18/24 Allergies No Known Allergies Allergy (Verified 05/06/24 08:21) Medication List - Last Reconciled 05/06/24 by Linnette Mckeon MD cyanocobalamin (vitamin B-12) (Vitamin B-12) 1,000 mcg PO DAILY ferrous fumarate 324 mg PO DAILY herbal drugs 9 tabs PO DAILY magnesium 250 mg PO DAILY Tobacco use date assessed: 05/05/24 Dental Screening Dental Screen Date: 05/05/24 Did you have a dental visit in the last 12 months?: Yes Did you have a dental problem in the last 6 months where you did not have access to dental care?: No Was dental information given to patient?: Patient has dentist HPI PE HPI Details Lady with dyslipidemia, anemia,, here today for her physical exam . She is up-to-date with her screening mammogram, last done a year ago, due again for this month, already has an appointment. Last Pap smear was done in 2021, but no endocervical cells were seen, will refer [place] [facility] for her repeat routine Pap and pelvic exam. Has been feeling well except for still seeing whirling spots on both sides of visual field , when she looks sideways. CT of head without contrast done earlier this year did not show any abnormality. She had recent labs done which showed normocytic normochromic anemia, . She has been between 11-12 gram/dL over 10 years. She does not have any hematinic deficiencies, chronic kidney or liver disease. She is asymptomatic. No suspicion for hemolysis or medication/ infection related anemia. Blood indices do not indicate thalassemia. Haptoglobin normal. Has been having intermittent episodes of cramping in legs and hands, worse at night. [facility] Medical History (Updated 05/06/24 @ 08:33 by Linnette Mckeon MD) Leg cramp Visual field defect of both eyes Anemia Dyslipidemia History of Bacillus Calmette-Flaco vaccination Surgical History No pertinent past surgical history Family History Father Essential hypertension Social History Household Members: Family Housing: House Patient Tobacco Use Status: Never used Tobacco e-Cigarette/Vaping Use: Never Used service: No Current occupational status: employed Cognitive needs: No Hearing needs: No Vision needs: Yes Female Reproductive History Menstrual Date of last menstrual period: 04/18/24 Questionnaire PHQ-9 Over the last 2 weeks, how often have you been bothered by any of the following problems? 1. Little interest or pleasure in doing things: not at all 2. Feeling down, depressed, or hopeless: not at all 3. Trouble falling or staying asleep, or sleeping too much: not at all 4. Feeling tired or having little energy: not at all 5. Poor appetite or overeating: not at all 6. Feeling bad about yourself - or that you are a failure or have let yourself or your family down: not at all 7. Trouble concentrating on things, such as reading the newspaper or watching television: not at all 8. Moving or speaking so slowly that other people could have noticed. Or the opposite - being so fidgety or restless that you have been moving around a lot more than usual: not at all 9. Thoughts that you would be better off or of hurting yourself in some way: not at all Total score: 0 Depression Screening Interpretation: Negative Depression Screening Done: Yes 43070 - PHQ-9 Billing: Yes Source: Developed by Drs. Jorje Kaba, Carmen Bhat, Ata Irving and colleagues, with an educational faraz from [employer]. Thrive Questionnaire Date Thrive assessed: 05/05/24 I am a: Patient What is your living situation today?: I have a steady place to live Within the past 12 months, did the food you bought not last and you didn't have the money to get more?: Never true Within the past 12 months, did you worry whether your food would run out before you got money to buy more?: Never true Do you have trouble paying for medicines?: No Do you have trouble getting transportation to medical appointments?: No Do you have trouble paying your heating and electricity bill?: No Do you have trouble taking care of your child, family member or friend?: No Do you have trouble with day-to-day activities such as bathing, preparing meals, shopping, managing finances, etc.?: No Are you currently unemployed and looking for a job?: No Are you interested in more education?: No Please select the resources that you would like help with: None Currently or been in a relationship where the following occur: No concerns reported THRIVE Score: 0 AUDIT C Alcohol Use Questionnaire (AUDIT-C) 1. How often do you have a drink containing alcohol?: Never 2. How many drinks containing alcohol do you have on a typical day when you are drinking?: 1 or 2 3. How often do you have six or more drinks on one occasion?: Never Total Score: 0 JOSHUA-7 AMB Questionnaire JOSHUA-7 Date JOSHUA - 7 assessed: 05/05/24 Feeling nervous, anxious, or on edge: 0 = Not at all Not being able to stop or control worryin = Not at all Worrying too much about different things: 1 = Several days Trouble relaxin = Not at all Being so restless that it is hard to sit still: 0 = Not at all Becoming easily annoyed or irritable: 0 = Not at all Feeling afraid as if something awful might happen: 1 = Several days Total JOSHUA-7 score (0-4 normal; 5-9 mild; 10-14 moderate; 15-21 severe): 2 Source: Developed by Drs. Jorje Kaba, Carmen Bhat, Ata Irving and colleagues, with an educational faraz from [employer]. JOSHUA-7 Assessment Billing JOSHUA-7 Assessment Tool: JOSHUA-7 Assessment 31510 Review of Systems Const Denies body aches, Denies fatigue, Denies fever(s) and Denies weakness Eyes Reports as per HPI ENT Denies nasal congestion, Denies nasal discharge and Denies sore throat Card Denies chest pain, Denies lightheadedness, Denies palpitations and Denies dyspnea Resp Denies chest congestion, Denies cough, Denies dyspnea and Denies wheezing GI Denies abdominal pain, Denies change in bowel habits and Denies heartburn Denies hematuria, Denies urinary frequency, Denies dysuria and Denies urinary urgency Musc Reports no additional complaints Skin/Breast Denies breast swelling, Denies breast pain, Denies breast mass, Denies lesions and Denies rash Neuro Denies weakness Psych Reports no additional complaints Endo Denies fatigue, Denies polydipsia, Denies polyuria and Denies palpitations Tez/Lymph Denies easy bruising Aller/Immun Denies seasonal rhinorrhea and Denies wheezing Physical exam (Primary Care) Vital Signs: Last Vital Signs Pulse 72 05/05/24 09:40 BP 124/96 H 05/05/24 09:40 Pulse Ox 99 05/05/24 09:40 Oxygen Delivery Method Room Air 05/05/24 09:40 BMI result Body Mass Index 31.6 Tobacco/Smoking Status: Tobacco use Status Tobacco use date assessed 05/05/24 05/05/24 09:41 Patient Tobacco Use Status Never used Tobacco 05/05/24 09:41 e-Cigarette/Vaping Use Never Used 05/05/24 09:41 PHQ-9: PHQ-9 Score PHQ-9: Total score 0 05/05/24 10:23 Depression Screening Interpretation: Negative Thrive Assessment: Date of Thrive Assessment Date Thrive assessed 05/05/24 05/05/24 09:41 Currently or been in a relationship where the following occur: No concerns reported Advance Care Planning discussion: Completed/Scanned Date of discussion: 05/05/24 Who was present: Patient Forms completed: Health Care Proxy Time spent: 16-45 minutes Actual minutes spent: 16 Const General: cooperative, comfortable and no acute distress Orientation/consciousness: patient oriented x3 HENMT Ears: hearing grossly normal bilaterally, external ears normal, TM's normal bilaterally and EAC's normal General nose exam: Normal external nose present, Normal nasal mucous membranes and turbinates present and No nasal discharge present Mouth: Normal oral and palatal mucosa present, oropharynx normal and moist mucous membranes Eyes General: appearance normal, both eyes and all related structures Visual Berry: normal visual berry by confrontation Alignment and Position: alignment normal Periorbital: periorbital findings normal Eyelids: Yes eyelids normal Conjunctivae: conjunctivae normal Sclerae: sclerae normal Pupils: Equal, round and reactive pupils present EOM: EOMs intact bilaterally Neck Neck: Yes full ROM, Yes no lymphadenopathy and Yes supple Chest Breast/axilla inspection: normal inspection of the breasts Breast/axilla palpation: normal palpation of the breasts Resp Effort & Inspection: normal respiratory effort and able to speak in complete sentences Auscultation: clear to auscultation bilaterally Cardio Rate: regular rate Rhythm: regular rhythm Heart sounds: S1 normal heart sound present and S2 normal heart sound present GI Inspection: Yes normal to inspection Palpation (GI): Soft to palpation, nontender and no masses Auscultation: normal bowel sounds Back/Spine/Pelvis Cervical Spine: cervical ROM normal Thoracic/Lumbar Spine: thoracic and lumbar spine normal to inspection Skin General skin exam: no rashes or lesions noted Neuro General: patient oriented x3, gait normal, tone normal, moves all extremities, Normal light touch and pain sensation and no focal motor deficits Cranial nerves: Yes Equal, round and reactive pupils present Cognition (Neuro): normal cognition Gait exam (Neuro): Normal gait present Motor exam (neuro): 5/5 motor strength present throughout Extrem General: Yes normal to inspection, Yes full ROM, Yes no joint enlargement, Yes no clubbing, cyanosis or edema, Yes no calf tenderness and Yes normal gait Psych Appearance: grossly normal and well kempt Mental Status: mental status grossly normal Speech and movement: Normal speech and movement present Affect: normal affect Attitude: cooperative Thought process: Normal thought process present Results Reviewed Results Reviewed: Name: Nova Drummond Age/Sex: 43/F : 1980 Unit#: [id number] Attend Dr: Mesha Welch MD Re03/18/24 Status: REG R Location: .ONC Disch: SPEC : [id number] MARCELO: 03/18/24 STATUS: COMP REQ : [id number] RECD: 03/18/[address]: Mesha Welch MD COMP: 03/18/24 ENTERED: 03/18/24-[address]: Linnette Mckeon MD ORDERED: CBC Auto Diff, Retic/R Test Result Flag Reference WBC 5.8 4.8-10.8 X10*3/uL RBC 3.68 L 4.20-5.50 X10*6/uL HGB 11.8 L 12.0-16.0 g/dl HCT 33.9 L 37.0-47.0 % MCV 92.1 80.0-98.0 fL MCH 32.1 27.0-33.0 pg MCHC 34.8 31.0-35.0 g/dl RDW 12.7 11.0-16.0 % PLT 232 160-400 X10*3/uL MPV 10.1 9.4-12.3 fL Neut Pct Auto 57.4 45-73 % ImGran Pct Auto 0.3 0.0-0.4 % Lymp Pct Auto 32.6 20-40 % [place] Pct Auto 7.3 2-11 % Eos Pct Auto 1.7 0-4 % Baso Pct Auto 0.7 0-2 % NRBC Pct Auto 0.0 0.0-0.2 /100WBC ANC Neut Abs # 3.3 2.0-8.3 x10*3/uL ImGran Abs Auto 0.02 0.00-0.03 X10*3/uL Lymph Abs Auto 1.9 1.2-4.9 X10*3/uL [place] Abs Auto 0.4 0.1-1.2 X10*3/uL Eos Abs Auto 0.1 0.0-0.4 X10*3/uL Baso Abs Auto 0.0 0.0-0.2 X10*3/uL NRBC Abs Auto 0.000 0.0-0.012 X10*3/uL Retic Abs 0.077 0.026-0.095 X10*6/uL IMM RETIC FRACT 11.3 3.0-15.9 % Retic HGB Equiv 34.8 30.0-35.0 pg Retic Pct 2.1 H 0.5-1.8 % Laboratory Tests 03/18/24 14:34 Ferritin 30 Lactate Dehydrogenase 168 Assessment and Plan Assessment & Plan (1) Annual visit for general adult medical examination with abnormal findings: Code(s): Z00.01 - Encounter for general adult medical examination with abnormal findings Plan: Will check appropriate labs. Recommended dental visit every 6 months and referred to [facility] for further evaluation and visual field symptoms. Take adequate calcium in diet and vitamin-D 3 at 2000 IU per cap once a day, in addition to weight-bearing exercises to help maintain good muscle tone and weight control. Instructed to do self-breast exam, and continue to get yearly mammogram, appointment already scheduled.. Reminded to get her yearly flu shot and COVID booster (2) Screening for malignant neoplasm of cervix: Code(s): Z12.4 - Encounter for screening for malignant neoplasm of cervix Plan: Last Pap smear done in 2021 showed no evidence of malignancy but endocervical cells were not present. Referred [place] [facility] for a repeat cervical cancer screening and pelvic exam. (3) Visual field defect of both eyes: Code(s): H53.40 - Unspecified visual field defects Plan: Referred to [facility] for further evaluation management (4) Dyslipidemia: Code(s): E78.5 - Hyperlipidemia, unspecified Plan: Fasting lipid panel ordered, reinforced importance of following low-cholesterol diet and getting regular exercise. (5) Anemia: Code(s): D64.9 - Anemia, unspecified Plan: Repeat CBC ordered. She has Normocytic normochromic anemia, unchanged over the last several years. Currently asymptomatic and has been evaluated by Hematology with no abnormality seen (6) Advanced directives, counseling/discussion: Code(s): Z71.89 - Other specified counseling Plan: Initiated the conversation about Advanced Directives. Advanced Directives help patients prepare for current and future decisions about their medical treatment and place of care. Discussed with patient that it is a process where a patients current condition and prognosis are reviewed, their wishes for information regarding their illness are elicited, and likely medical dilemmas are presented and options discussed. Healthcare proxy form completed today The form can be amended as needed, reviewed yearly and make changes as needed (7) Leg cramps: Code(s): R25.2 - Cramp and spasm Plan: Ordered serum magnesium, vitamin B12 and folic acid level as well as vitamin-D level and basic metabolic panel. Orders: Orders Vitamin B12 and Folate 05/05/24 D64.9 - Anemia, unspecified, E78.5 - Hyperlipidemia, unspecified, H53.40 - Unspecified visual field defects Lipid Panel 05/05/24 D64.9 - Anemia, unspecified, E78.5 - Hyperlipidemia, unspecified, H53.40 - Unspecified visual field defects Vitamin D 25-OH Total 05/05/24 D64.9 - Anemia, unspecified, E78.5 - Hyperlipidemia, unspecified, H53.40 - Unspecified visual field defects Magnesium 05/05/24 D64.9 - Anemia, unspecified, E78.5 - Hyperlipidemia, unspecified, H53.40 - Unspecified visual field defects Basic Metabolic Panel Fasting 05/05/24 D64.9 - Anemia, unspecified, E78.5 - Hyperlipidemia, unspecified, H53.40 - Unspecified visual field defects Complete Blood Count Auto Diff 05/05/24 D64.9 - Anemia, unspecified, E78.5 - Hyperlipidemia, unspecified, H53.40 - Unspecified visual field defects Hemoglobin A1c 05/05/24 D64.9 - Anemia, unspecified, E78.5 - Hyperlipidemia, unspecified, H53.40 - Unspecified visual field defects Referrals [employer] Referral Z12.4 - Encounter for screening for malignant neoplasm of cervix Ophthalmology Referral H53.40 - Unspecified visual field defects Coding Level of Care Code Est Pt Prev Care 40-64y(49985) Diagnoses Annual visit for general adult medical examination with abnormal findings Z00.01 Screening for malignant neoplasm of cervix Z12.4 Visual field defect of both eyes H53.40 Dyslipidemia E78.5 Anemia D64.9 Advanced directives, counseling/discussion Z71.89 Leg cramps R25.2 Additional Codes Vital Signs *Quality* - Advance Care Planning discussion: Completed/Scanned ([id number]) Vital Signs *Quality* - Time spent: 16-45 minutes ([id number]) JOSHUA-7 Assessment Billing - JOSHUA-7 Assessment Tool: JOSHUA-7 Assessment [id number] ([id number])
[2024-05-05 09:40] VITALS: BP 124/96; PULSE 72; O2SAT 99; BMI 31.6
== END 2024-05-05 10:56 | disposition home or self-care (01) ==
PROVIDERS: PCP Internal Medicine; Visit Provider Internal Medicine
DX: Z00.00 Encounter for general adult medical examination without abnormal findings (principal); H53.40 Unspecified visual field defects; E78.5 Hyperlipidemia, unspecified; D64.9 Anemia, unspecified; R25.2 Cramp and spasm
CPT/HCPCS: 1123F; 99396; 99497

== ENCOUNTER 2024-05-05 10:24 | Outpatient (REF) | payer OTHER, SELFPAY ==
[2024-05-05 13:24] LABS: MANUAL DIFF FLAG NO
[2024-05-05 13:46] LABS: Estimated Average Glucose 105 mg/dL; Hemoglobin A1c % 5.3 % (<6.0)
[2024-05-05 13:59] LABS: Basophils Absolute Auto 0.1 X10*3/uL (0.0-0.2); Basophils Percent Auto 0.9 % (0-2); Eosinophils Absolute Auto 0.1 X10*3/uL (0.0-0.4); Hematocrit 37.5 % (37.0-47.0); Hemoglobin 12.7 g/dl (12.0-16.0); Imm Gran Abs Auto 0.01 X10*3/uL (0.00-0.03); Imm Gran Pct Auto 0.2 % (0.0-0.4); Lymphocytes Absolute Auto 1.4 X10*3/uL (1.2-4.9); Lymphocytes Percent Auto 24.2 % (20-40); Mean Corpuscular HGB Conc 33.9 g/dl (31.0-35.0); Mean Corpuscular Hemoglobin 31.5 pg (27.0-33.0); Mean Corpuscular Volume 93.1 fL (80.0-98.0); Mean Platelet Volume 10.9 fL (9.4-12.3); Monocytes Absolute Auto 0.4 X10*3/uL (0.1-1.2); Monocytes Percent Auto 6.8 % (2-11); Neutrophils Absolute Auto 3.7 x10*3/uL (2.0-8.3); Neutrophils Percent Auto 65.9 % (45-73); Platelet Count 256 X10*3/uL (160-400); Red Blood Count 4.03 X10*6/uL (4.20-5.50); Red Cell Distribution Width 12.6 % (11.0-16.0); White Blood Count 5.6 X10*3/uL (4.8-10.8)
[2024-05-05 14:00] LABS: Anion Gap 12 (12-20); Blood Urea Nitrogen 14 mg/dL (9-16); Calcium 9.9 mg/dL (8.4-10.2); Carbon Dioxide 25 mmol/L (22-29); Chloride 107 mmol/L (96-108); Cholesterol 243 mg/dL (<200); Estimated Glomerular Filt Rate > 60; Glucose Fasting 91 mg/dL (60-99); HDL Cholesterol 67 mg/dL (>40); LDL Cholesterol Calculated 158 mg/dL (<100); Potassium 4.4 mmol/L (3.3-5.1); Sodium 140 mmol/L (135-145); Triglycerides 93 mg/dL (<150); Vitamin D 25-OH Total 53.9 ng/mL (>30)
[2024-05-05 14:12] LABS: Folate 13.3 ng/mL (> or = 4.0); Vitamin B12 708 pg/mL (200-900)
== END 2024-05-05 10:25 | disposition home or self-care (01) ==
LOC: HO.HMGCLDS 10:24
PROVIDERS: PCP Internal Medicine; Visit Provider Internal Medicine
DX: E78.5 Hyperlipidemia, unspecified (principal); D64.9 Anemia, unspecified; H53.40 Unspecified visual field defects
CPT/HCPCS: 36415; 80048; 80061; 82306; 82607; 82746; 83036; 83735; 85025

== ENCOUNTER 2024-05-13 14:16 | Outpatient (REF) | payer OTHER, SELFPAY ==
--- NOTE | ~2024-05-13 | MM_ITS ---
EXAMINATION: MM SCREENING DIGITAL BREAST TOMOSYNTHESIS, BILATERAL CLINICAL INFORMATION: Screening. Asymptomatic. COMPARISON: Mammography: Comparison is made with available priors TECHNIQUE: Digital breast mammography with tomosynthesis is performed in both the craniocaudal and mediolateral oblique views along with computer-aided detection (CAD). FINDINGS: The breasts are heterogeneously dense, which may obscure small masses (ACR BI-RADS breast composition Category c). There are no significant masses, abnormal calcifications, or other abnormalities. MM/MM tomosynthesis screening BI IMPRESSION: No mammographic evidence of malignancy. ASSESSMENT: BI-RADS BI-RADS 1 - Negative RECOMMENDATION: Routine annual mammography screening. 1 year F/U This examination should not preclude the clinical evaluation of a suspicious palpable abnormality. This patient's information was entered into a reminder system with a target due date for their next mammogram. Electronically signed by: Zoe Noriega DO 05/25/2024 03:41 PM EDT
== END 2024-05-13 14:17 | disposition home or self-care (01) ==
LOC: HO.MAMMO 14:16
PROVIDERS: PCP Internal Medicine; Visit Provider Internal Medicine
DX: Z12.31 Encounter for screening mammogram for malignant neoplasm of breast (principal)
CPT/HCPCS: 77063; 77067

== ENCOUNTER → 2024-05-13 14:30 | Outpatient (BNV) | payer OTHER, SELFPAY | PROVIDERS: PCP Internal Medicine; Visit Provider Internal Medicine | DX: Z12.31 Encounter for screening mammogram for malignant neoplasm of breast (principal) | CPT/HCPCS: 77063; 77067 ==

== ENCOUNTER 2025-06-01 08:22 | Outpatient (AMB) | payer OTHER, SELFPAY ==
--- NOTE | 2025-06-01 08:31 | MHC.PC.OV ---
Vital Signs 06/01/25 08:33 Height 5 ft 2 in Weight 180 lb BMI 32.9 BP 130/98 H Blood Pressure Location Lt brachial Position Sitting Respiration 15 Pulse 86 Pulse Source Pulse Oximeter Temp 98.1 F Temp Source Oral Pulse Oximetry (%) 98 Oxygen Delivery Method Room Air Intake Visit Reasons: Annual PE Intake Note: Pt is here today for her PE: Last mammogram 05/13/24, papsmear 04/25/22 Is last menstrual period known: Yes Last menstrual period: 05/05/25 Allergies No Known Allergies Allergy (Verified 06/01/25 08:33) Medication List - Last Reconciled 06/01/25 by Linnette Mckeon MD No Known Home Meds Tobacco use date assessed: 06/01/25 Dental Screening Dental Screen Date: 06/01/25 Did you have a dental visit in the last 12 months?: Yes Did you have a dental problem in the last 6 months where you did not have access to dental care?: No Was dental information given to patient?: Patient has dentist HPI Annual PE HPI Details 44-year-old lady with history of anemia, dyslipidemia, here today for her physical exam. She is due now for her screening mammogram, last done in April 2024 with negative findings. Last cervical cancer screening was done in 2021 with negative findings but no endocervical cells seen. She has been feeling well, with no complaints at present time. She is up-to-date with her Tdap, has had COVID vaccines in the past but does not want to get the booster , flu vaccine given on today's visit [facility] Medical History History of anemia Leg cramp Visual field defect of both eyes Dyslipidemia History of Bacillus Calmette-Flaco vaccination Surgical History No pertinent past surgical history Family History Father Essential hypertension Social History (Updated 06/01/25 @ 09:13 by Linnette Mckeon MD) Household Members: Family Housing: House Alcohol intake: never Patient Tobacco Use Status: Never used Tobacco e-Cigarette/Vaping Use: Never Used service: No Current occupational status: employed Current occupation: Works at [employer] Cognitive needs: No Hearing needs: No Vision needs: Yes Female Reproductive History Menstrual Duration of menses: 3-5 days Date of last menstrual period: 05/05/25 control method: none Date of last pap smear: 04/25/22 History of abnormal pap smear: No History of STI: No Date of Mammogram: 05/13/24 History of abnormal mammogram: No Questionnaire PHQ-9 Over the last 2 weeks, how often have you been bothered by any of the following problems? 1. Little interest or pleasure in doing things: not at all 2. Feeling down, depressed, or hopeless: not at all 3. Trouble falling or staying asleep, or sleeping too much: not at all 4. Feeling tired or having little energy: not at all 5. Poor appetite or overeating: not at all 6. Feeling bad about yourself - or that you are a failure or have let yourself or your family down: not at all 7. Trouble concentrating on things, such as reading the newspaper or watching television: not at all 8. Moving or speaking so slowly that other people could have noticed. Or the opposite - being so fidgety or restless that you have been moving around a lot more than usual: not at all 9. Thoughts that you would be better off or of hurting yourself in some way: not at all Total score: 0 Depression Screening Interpretation: Negative Depression Screening Done: Yes 46068 - PHQ-9 Billing: Yes Source: Developed by Drs. Jorje Kaba, Carmen Bhat, Ata Irving and colleagues, with an educational faraz from [employer]. Thrive Questionnaire Date Thrive assessed: 05/31/25 I am a: Patient What is your living situation today?: I have a steady place to live Within the past 12 months, did the food you bought not last and you didn't have the money to get more?: Never true Within the past 12 months, did you worry whether your food would run out before you got money to buy more?: Never true Do you have trouble paying for medicines?: No Do you have trouble getting transportation to medical appointments?: No Do you have trouble paying your heating and electricity bill?: No Do you have trouble taking care of your child, family member or friend?: No Do you have trouble with day-to-day activities such as bathing, preparing meals, shopping, managing finances, etc.?: No Are you currently unemployed and looking for a job?: No Are you interested in more education?: No Please select the resources that you would like help with: None Currently or been in a relationship where the following occur: No concerns reported THRIVE Score: 0 AUDIT C Alcohol Use Questionnaire (AUDIT-C) 1. How often do you have a drink containing alcohol?: Never 2. How many drinks containing alcohol do you have on a typical day when you are drinking?: 1 or 2 3. How often do you have six or more drinks on one occasion?: Never Total Score: 0 Score Reviewed/Action Taken: Yes JOSHUA-7 AMB Questionnaire JOSHUA-7 Date JOSHUA - 7 assessed: 06/01/25 Feeling nervous, anxious, or on edge: 0 = Not at all Not being able to stop or control worryin = Not at all Worrying too much about different things: 0 = Not at all Trouble relaxin = Not at all Being so restless that it is hard to sit still: 0 = Not at all Becoming easily annoyed or irritable: 0 = Not at all Feeling afraid as if something awful might happen: 0 = Not at all Total JOSHUA-7 score (0-4 normal; 5-9 mild; 10-14 moderate; 15-21 severe): 0 Source: Developed by Drs. Jorje Kaba, Carmen Bhat, Ata Irving and colleagues, with an educational faraz from [employer]. JOSHUA-7 Assessment Billing JOSHUA-7 Assessment Tool: JOSHUA-7 Assessment 88793 Review of Systems Const Denies body aches, Denies fatigue, Denies fever(s) and Denies weakness Eyes Reports as per HPI ENT Denies nasal congestion, Denies nasal discharge and Denies sore throat Card Denies chest pain, Denies lightheadedness, Denies palpitations and Denies dyspnea Resp Denies chest congestion, Denies cough, Denies dyspnea and Denies wheezing GI Denies abdominal pain, Denies change in bowel habits and Denies heartburn Denies hematuria, Denies urinary frequency, Denies dysuria and Denies urinary urgency Musc Reports no additional complaints Skin/Breast Denies breast swelling, Denies breast pain, Denies breast mass, Denies lesions and Denies rash Neuro Denies weakness Psych Reports no additional complaints Endo Denies fatigue, Denies polydipsia, Denies polyuria and Denies palpitations Tez/Lymph Denies easy bruising Aller/Immun Denies seasonal rhinorrhea and Denies wheezing Physical exam (Primary Care) Vital Signs: Last Vital Signs Temp 98.1 F 06/01/25 08:33 Pulse 86 06/01/25 08:33 Resp 15 06/01/25 08:33 BP 130/98 H 06/01/25 08:33 Pulse Ox 98 06/01/25 08:33 Oxygen Delivery Method Room Air 06/01/25 08:33 BMI result Body Mass Index 32.9 Tobacco/Smoking Status: Tobacco use Status Tobacco use date assessed 06/01/25 06/01/25 08:37 Patient Tobacco Use Status Never used Tobacco 06/01/25 08:37 e-Cigarette/Vaping Use Never Used 06/01/25 08:37 PHQ-9: PHQ-9 Score PHQ-9: Total score 0 06/01/25 08:46 Depression Screening Interpretation: Negative Thrive Assessment: Date of Thrive Assessment Date Thrive assessed 05/31/25 06/01/25 08:37 Currently or been in a relationship where the following occur: No concerns reported Const General: no acute distress and alert Nutritional Appearance: obese Orientation/consciousness: patient oriented x3 Limitations: no limitations [facility] Head: Yes normocephalic Ears: hearing grossly normal bilaterally, external ears normal, Abnormal EAC present erythema and other (Slight erythema on lower half of left tympanic membrane, no bulging) General nose exam: Normal external nose present Face and sinus: Yes face symmetric Mouth: Normal oral and palatal mucosa present and moist mucous membranes Eyes General: appearance normal, both eyes and all related structures Neck Neck: Yes normal visual inspection, Yes full ROM and Yes no lymphadenopathy Thyroid: Thyroid normal Chest Chest palpation & inspection: normal inspection of the chest and normal palpation of entire chest wall Breast/axilla inspection: normal inspection of the breasts Breast/axilla palpation: normal palpation of the breasts and normal palpation of the axillae Resp Effort & Inspection: normal respiratory effort Auscultation: clear to auscultation bilaterally Cardio Palpation: normal PMI Rate: regular rate Rhythm: regular rhythm Heart sounds: S1 normal heart sound present and S2 normal heart sound present GI Inspection: Yes normal to inspection Palpation (GI): Soft to palpation, nontender, no guarding and no masses Auscultation: normal bowel sounds General: Yes bladder normal to palpation and Yes no CVA tenderness External Female Exam: normal external appearance and normal appearance of the urethra Speculum Exam - Vagina: normal appearance of the vagina, normal palpation and normal vaginal discharge Speculum Exam - Cervix: normal appearance of the cervix, normal palpation and Cervical os open Bimanual exam- vagina & uterus: normal bimanual exam, normal palpation, bladder normal to palpation, normal palpation and non-tender Bimanual Exam- Adnexa, other: normal adnexae, no masses, normal and No adnexal tenderness OB/external & speculum: Cervical os open Back/Spine/Pelvis Back: no CVA tenderness Skin Other: Hyperpigmented mole right retroauricular area Neuro General: patient oriented x3, gait normal, tone normal, moves all extremities, Normal light touch and pain sensation and no focal motor deficits Extrem General: Yes normal to inspection, Yes full ROM, Yes no joint enlargement, Yes no clubbing, cyanosis or edema, Yes no calf tenderness and Yes normal gait Psych Appearance: grossly normal and well kempt Mental Status: mental status grossly normal Speech and movement: Normal speech and movement present Affect: normal affect Office Procedures Flu Questionnaire Does the patient have a severe egg allergy?: No Does the patient have severe life threatening allergies?: No Does the patient have a fever or illness today?: No Has the patient ever had Guillain-Mcwilliams Syndrome?: No Has the patient ever had any past reaction to a flu shot?: No Immunizations Fluarix [id number] (PF) 45 mcg (15 mcg x 3)/0.5 mL IM syringe Performing Provider: Linnette Mckeon MD Performing Location: [facility] [place] [facility] [place] [facility] Administered by: April Ku CMA on 06/01/25 08:58 Dose Route Admin Location Dispensed Lot Number Expiration Date NDC Washer Blanket 0.5 mL IM Right Deltoid 0.5 mL [id number] 02/20/26 [id number] VIS Given Date VIS Provided VIS Publication Date 06/01/25 Single Vaccine 24 Eligibility Eligibility Date Funding Source Not [facility] Eligible 06/01/25 Private Coding Level of Care Code Est Pt Prev Care 40-64y(69921) Diagnoses Annual visit for general adult medical examination with abnormal findings Z00. Encounter for screening for malignant neoplasm of cervix Z12.4 Dyslipidemia E78.5 History of anemia Z86.2 Left ear pain H92.02 Additional Codes JOSHUA-7 Assessment Billing - JOSHUA-7 Assessment Tool: JOSHUA-7 Assessment 76199 ([id number]) PHQ-9 - 06909 - PHQ-9 Billing: Yes ([id number]) Assessment & Plan Assessment & Plan (1) Annual visit for general adult medical examination with abnormal findings: Code(s): Z00. - Encounter for general adult medical examination with abnormal findings Plan: Will check appropriate labs. Recommended dental visit every 6 months and regular eye exams, at least every 2 years, goes to [facility]. Take adequate calcium in diet and vitamin-D 3 at 2000 IU per cap once a day, in addition to weight-bearing exercises to help maintain good muscle tone and weight control. Instructed to do self-breast exam, and recommended to get yearly mammogram, patient states she will schedule own appointment at [facility] [place] [facility]. Cervical cancer screening done today. Flu vaccine given today. Does not want to get a COVID booster but is up-to-date with her Tdap (2) Encounter for screening for malignant neoplasm of cervix: Code(s): Z12.4 - Encounter for screening for malignant neoplasm of cervix Plan: Pap smear and pelvic exam done today. (3) Dyslipidemia: Code(s): E78.5 - Hyperlipidemia, unspecified Category: Medical Plan: Fasting lipid panel ordered today. . Stressed importance of adherence to low-cholesterol diet and regular exercise, at least 30 minutes 3 to 4 times a week. Advised patient to make healthy food choices, eat more fruits, vegetables, whole grains, wild caught fish and low-fat dairy. Limit amount of meat and fried or fatty food products, as well as processed foods and fast foods. (4) History of anemia: Code(s): Z86.2 - Personal history of diseases of the blood and blood-forming organs and certain disorders involving the immune mechanism Category: Medical Plan: Will check a hemoglobin hematocrit on this visit (5) Left ear pain: Code(s): H92.02 - Otalgia, left ear Plan: Prescription sent for Cortisporin TC instill 1 drop to left ear canal 3 times a day for 7 days. Orders: Orders Pap Smear Today Z12.4 - Encounter for screening for malignant neoplasm of cervix Alanine Aminotransferase Today E78.5 - Hyperlipidemia, unspecified, Z13.1 - Encounter for screening for diabetes mellitus, Z86.2 - Personal history of diseases of the blood and blood-forming organs and certain disorders involving the immune mechanism Aspartate Amino Transferase Today E78.5 - Hyperlipidemia, unspecified, Z13.1 - Encounter for screening for diabetes mellitus, Z86.2 - Personal history of diseases of the blood and blood-forming organs and certain disorders involving the immune mechanism Hemoglobin and Hematocrit Today E78.5 - Hyperlipidemia, unspecified, Z13.1 - Encounter for screening for diabetes mellitus, Z86.2 - Personal history of diseases of the blood and blood-forming organs and certain disorders involving the immune mechanism Vitamin D 25-OH Total Today E78.5 - Hyperlipidemia, unspecified, Z13.1 - Encounter for screening for diabetes mellitus, Z86.2 - Personal history of diseases of the blood and blood-forming organs and certain disorders involving the immune mechanism Basic Metabolic Panel Fasting Today E78.5 - Hyperlipidemia, unspecified, Z13.1 - Encounter for screening for diabetes mellitus, Z86.2 - Personal history of diseases of the blood and blood-forming organs and certain disorders involving the immune mechanism Lipid Panel Today E78.5 - Hyperlipidemia, unspecified, Z13.1 - Encounter for screening for diabetes mellitus, Z86.2 - Personal history of diseases of the blood and blood-forming organs and certain disorders involving the immune mechanism Influenza [id number] Immunization Today Z23 - Encounter for immunization Medications: New Cortisporin-TC 3.3-3-10-0.5 mg/mL (kcorftmd-kmiult-OP-thonzonium) apply to (cotton) wick; replace wick every 24 hours 1 appl otic (ear) left TID 10 mL 0RF 7 days NS H92.02 - Otalgia, left ear
[2025-06-01 08:33] VITALS: BP 130/98; PULSE 86; RESP 15; TEMP 36.7; O2SAT 98; BMI 32.9
== END 2025-06-01 09:43 | disposition home or self-care (01) ==
PROVIDERS: PCP Internal Medicine; Visit Provider Internal Medicine
DX: Z00.01 Encounter for general adult medical examination with abnormal findings (principal); Z12.4 Encounter for screening for malignant neoplasm of cervix; E78.5 Hyperlipidemia, unspecified; Z86.2 Personal history of diseases of the blood and blood-forming organs and certain disorders involving the immune mechanism; H92.02 Otalgia, left ear; Z23 Encounter for immunization

== ENCOUNTER 2025-06-01 08:22 | Outpatient (REF) | payer OTHER, SELFPAY | END 2025-06-01 08:23 | disposition home or self-care (01) | LOC: HO.HMGCLDS 08:22 | PROVIDERS: PCP Internal Medicine; Visit Provider Internal Medicine | DX: Z00.01 Encounter for general adult medical examination with abnormal findings (principal); E78.5 Hyperlipidemia, unspecified; H92.02 Otalgia, left ear; Z23 Encounter for immunization; Z86.2 Personal history of diseases of the blood and blood-forming organs and certain disorders involving the immune mechanism | CPT/HCPCS: 90471; 90656; 96127 ==

== ENCOUNTER 2025-06-01 09:11 | Outpatient (REF) | payer OTHER, SELFPAY ==
[2025-06-01 14:18] LABS: Hematocrit 37.2 % (37.0-47.0); Hemoglobin 12.0 g/dl (12.0-16.0)
[2025-06-01 14:31] LABS: Alanine Aminotransferase 26 U/L (0-31); Anion Gap 8 (12-20); Aspartate Amino Transferase 26 U/L (5-31); Blood Urea Nitrogen 10 mg/dL (9-16); Calcium 9.0 mg/dL (8.4-10.2); Carbon Dioxide 27 mmol/L (22-29); Chloride 110 mmol/L (96-108); Cholesterol 238 mg/dL (<200); Estimated Glomerular Filt Rate > 60; HDL Cholesterol 69 mg/dL (>40); Potassium 4.1 mmol/L (3.3-5.1); Sodium 141 mmol/L (135-145); Triglycerides 102 mg/dL (<150)
== END 2025-06-01 09:12 | disposition home or self-care (01) ==
LOC: HO.LNP 09:11
PROVIDERS: Visit Provider Internal Medicine
DX: Z13.1 Encounter for screening for diabetes mellitus (principal); Z12.4 Encounter for screening for malignant neoplasm of cervix; E78.5 Hyperlipidemia, unspecified; Z23 Encounter for immunization; Z86.2 Personal history of diseases of the blood and blood-forming organs and certain disorders involving the immune mechanism; Z11.51 Encounter for screening for human papillomavirus (HPV)
CPT/HCPCS: 80048; 80061; 82306; 84450; 84460; 85014; 85018; 87626; 88175